=== PATIENT | male | born 1990 | race Caucasian/White ===

== ENCOUNTER 2021-03-16 10:51 | Observation (INO) | payer OTHER ==
[~2021-03-16] VITALS: Ht 180.3 cm; Wt 98.9 kg
--- NOTE | ~2021-03-16 | OP ---
[facility] [address] [place] [address] OPERATIVE REPORT Name: ANALISA KELLEY Room: [address] Mikayla#: [id number] Admission: 03/16/21 Attend Phys: Bimal Jones Discharge: Date of : 88 Report #: [id number] THIS REPORT FOR: cc: FAM - No family physician/PCP FAM - No family physician/PCP Bimal Jones MD ~ DATE OF SURGERY: 03/16/2021 PREOPERATIVE DIAGNOSIS: Acute appendicitis. POSTOPERATIVE DIAGNOSIS: Acute appendicitis. OPERATION: Laparoscopic appendectomy. SURGEON: Bimal Jones MD. ANESTHESIA: General. ESTIMATED BLOOD LOSS: Minimal. SPECIMENS: Appendix. DESCRIPTION OF PROCEDURE: After informed consent was obtained, the patient was brought to the operating room and placed supine. SCDs were placed and working, preoperative antibiotics were administered, general anesthesia was induced. The abdomen was prepped and draped in the usual sterile fashion. A 10 mm incision was made below the umbilicus. Fascia was incised and a trocar was placed. Pneumoperitoneum was established. Right upper quadrant and left lower quadrant 5 mm trocar was placed. The appendix was grasped and retracted anteriorly. A window was made in the mesoappendix. The mesoappendix was ligated using a LigaSure device. There was excellent hemostasis. The base of the appendix was then ligated using a PDS Endoloop. The appendix was then cut and placed into an Endopouch. It was removed. The fascia at the umbilicus was closed with a [id number] 0 Vicryl. Skin was closed with 4-0 Monocryl. Incisions were dressed with Steri-Strips. COMPLICATIONS: None. DISPOSITION: The patient was taken to recovery in satisfactory condition. By: [id number] Jones MD /nt
[2021-03-16 11:33] VITALS: BP 143/72
[2021-03-16 11:58] LABS: URINE BILIRUBIN NEGATIVE (Negative); URINE BLOOD NEGATIVE (Negative); URINE CLARITY CLEAR; URINE COLOR YELLOW; URINE GLUCOSE-RANDOM NEGATIVE (Negative); URINE KETONES NEGATIVE (Negative); URINE LEUKOCYTES-REFLEX NEGATIVE (Negative); URINE NITRITE-REFLEX NEGATIVE (Negative); URINE PROTEIN NEGATIVE (Negative); URINE UROBILINOGEN 0.2 E.U./dl (0.2-1.0)
[2021-03-16 13:13] LABS: CALCIUM 9.4 mg/dL (8.5-10.1); POTASSIUM 4.1 mmol/L (3.5-5.1)
[2021-03-16 13:16] LABS: ABSOLUTE EOSINOPHILS 0.1 thou/uL (0.0-0.7); ABSOLUTE LYMPHOCYTES 2.2 thou/uL (0.8-5.3); ABSOLUTE MONOCYTES 0.9 thou/uL (0.0-1.2); ABSOLUTE NEUTROPHILS 8.7 thou/uL (1.6-8.1); BASOPHILS 0.3 %; EOSINOPHILS 1.1 %; HEMATOCRIT 44.6 % (42.0-52.0); HEMOGLOBIN 14.8 gm/dL (14.0-18.0); LYMPHOCYTES 18.2 %; MCH 28.2 pg (26.0-34.0); MCHC 33.3 g/dL (28.0-37.0); MCV 84.7 fL (80.0-100.0); MONOCYTES 7.9 %; MPV 7.6 fl. (7.2-11.1); NUCLEATED RBCS 0 /100WBC; PLATELET COUNT* 320 thou/uL (150-400); POLYS 72.5 %; RBC 5.27 mil/uL (4.50-6.00); RDW-CV 12.6 % (10.5-14.5)
[2021-03-16 13:18] LABS: ALBUMIN 4.6 g/dL (3.4-5.0); TOTAL BILIRUBIN 1.2 mg/dL (<0.1-1.0); TOTAL PROTEIN 8.5 g/dL (6.4-8.2)
[2021-03-16 13:34] LABS: AMP/METHAMP Negative (Negative); BARBITURATES Negative (Negative); BENZODIAZEPINES Negative (Negative); COCAINE Negative (Negative); METHADONE Negative (Negative); OPIATES Negative (Negative); PCP Negative (Negative); THC Negative (Negative)
[2021-03-16 16:00] VITALS: BP 140/70
[2021-03-16 20:00] VITALS: BP 123/69
[2021-03-17] VITALS: BP 109/41
[2021-03-17 07:40] VITALS: BP 97/74
[2021-03-17 09:32] VITALS: BP 97/74
--- NOTE | 2021-03-17 10:19 | NUR ---
VITALS STABLE THIS AM, PATIENT AMBULATING WITH ASSISTANCE TO BATHROOM WITHOUT DIFFICULTY. TOLERATING REG DIET. DISCHARGE PER DR. HINKLE. VERBALIZES UNDERSTANDING OF PAPERWORK, SCRIPT WAS GIBEN TO PER DR. HINKLE AFTER SURGERY. ICE PACKS SENT WITH PATIENT. PATIENT TAKEN OUT VIA WHEELCHAIR WITH ALL BELONGINGS.
--- NOTE | 2021-03-22 15:07 | PATH ---
[address] [address] PATHOLOGY RPT PROCEDURE Name: ANALISA KELLEY Room: [address] Mikayla#: [id number] Admission: 03/16/21 Date of : 88 Discharge: 03/17/21 Report #: [id number] Path Case #: [id number] [facility] Accession Number: [id number] . 01 Material submitted: . appendix - APPENDIX . 01 Clinical history: . LAPAROSCOPIC APPENDECTOMY APPENDICITIS . 02 Diagnosis: Appendix: - Acute appendicitis, periappendicitis and serositis. (CECIYL:seferino; 03/22/2021) MBR 03/22/2021 1010 Local . 02 Electronically signed: . Adam Schroeder MD, Pathologist NPI- [id number] . 01 Gross description: . Fixative: Formalin Labeled: Appendix Appendix length: 6.9 cm Appendix diameter: 0.8-1.2 cm Mesoappendix: 7.3 x 1.8 x 1.6 cm Proximal margin: Pressed closed without a staple line Serosa: Gee-pink with diffuse hemorrhage and focal gee-white purulent exudate Cut surface: Displays a hemorrhagic lumen in the mid to distal appendix Luminal diameter: 0.6 cm Perforation: No Lesions/abnormalities: None identified A1 Proximal margin (inked black) and distal tip, bisected A2 Mid appendix ([facility]; 03/18/2021) [facility] 03/18/[address] [place] [address] . 02 Pathologist provided ICD-10: K35.80 . 02 CPT . 480745 Specimen Comment: A courtesy copy of this report has been sent to [phone] Specimen Comment: Report sent to Performed at: [id number] [place] [address] PATHOLOGY RPT PROCEDURE Name: ANALISA KELLEY Room: [address] Ernesto Degroot#: [id number] Admission: 03/16/21 Date of : 88 Discharge: 03/17/21 Report #: [id number] Path Case #: [id number] MD Elie Pride MD Phone: [phone] Performed at: [facility] [address], [place], [place] [id number] MD Adam Schroeder MD Phone: [phone]
== END 2021-03-17 10:15 | disposition home or self-care (01) ==
LOC: M.ERS 10:51 → M.TBA-ER 14:29 → M.2W 14:29
PROVIDERS: Nurse Practitioner Family; ADMIT Surgery; ATTEND Surgery
DX: K35.80 Unspecified acute appendicitis (principal); Z20.822 Contact with and (suspected) exposure to COVID-19; Z79.899 Other long term (current) drug therapy